=== PATIENT | male | born 1975 | race African-American/Black ===

== ENCOUNTER → 2024-06-27 | Outpatient (REF) | payer OTHER | LOC: WCC 10:14 | PROVIDERS: ATTEND Nurse Practitioner Family | DX: Z43.1 Encounter for attention to gastrostomy (principal) ==

== ENCOUNTER → 2024-07-04 | Outpatient (REF) | payer OTHER | LOC: WCC 10:54 | PROVIDERS: ATTEND Nurse Practitioner Family | DX: T81.89XA Other complications of procedures, not elsewhere classified, initial encounter (principal) ==

== ENCOUNTER → 2024-07-12 | Outpatient (REF) | payer OTHER | LOC: WCC 10:14 | PROVIDERS: ATTEND Nurse Practitioner Family | DX: T81.89XA Other complications of procedures, not elsewhere classified, initial encounter (principal) ==

== ENCOUNTER → 2024-07-18 | Outpatient (REF) | payer OTHER | LOC: WCC 10:20 | PROVIDERS: ATTEND Nurse Practitioner Family | DX: T81.89XA Other complications of procedures, not elsewhere classified, initial encounter (principal) ==

== ENCOUNTER → 2024-07-26 | Outpatient (REF) | payer OTHER | LOC: WCC 10:21 | PROVIDERS: ATTEND Nurse Practitioner Family | DX: T81.89XA Other complications of procedures, not elsewhere classified, initial encounter (principal) ==

== ENCOUNTER → 2024-08-02 | Outpatient (REF) | payer OTHER | LOC: WCC 11:05 | PROVIDERS: ATTEND Nurse Practitioner Family | DX: T81.89XA Other complications of procedures, not elsewhere classified, initial encounter (principal) ==

== ENCOUNTER → 2024-08-09 | Outpatient (REF) | payer OTHER | LOC: WCC 08:48 | PROVIDERS: ATTEND Nurse Practitioner Family | DX: T81.89XA Other complications of procedures, not elsewhere classified, initial encounter (principal) ==

== ENCOUNTER → 2024-08-16 | Outpatient (REF) | payer OTHER | LOC: WCC 10:35 | PROVIDERS: ATTEND Nurse Practitioner Family | DX: T81.89XA Other complications of procedures, not elsewhere classified, initial encounter (principal) ==

== ENCOUNTER → 2024-08-23 | Outpatient (REF) | payer OTHER ==
[~2024-08-23] MED LIST: LIDOCAINE VISC 2% SOLN 15 ML UDC ONE
== END ==
LOC: WCC 10:40
PROVIDERS: ATTEND Nurse Practitioner Family
DX: T81.89XA Other complications of procedures, not elsewhere classified, initial encounter (principal)

== ENCOUNTER → 2024-08-30 | Outpatient (REF) | payer OTHER | LOC: WCC 11:25 | PROVIDERS: ATTEND Nurse Practitioner Family | DX: T81.89XA Other complications of procedures, not elsewhere classified, initial encounter (principal) ==

== ENCOUNTER → 2024-09-06 | Outpatient (REF) | payer OTHER | LOC: WCC 10:28 | PROVIDERS: ATTEND Nurse Practitioner Family | DX: T81.89XA Other complications of procedures, not elsewhere classified, initial encounter (principal); Z43.1 Encounter for attention to gastrostomy ==